=== PATIENT | male | born 1975 | race Caucasian/White ===

== ENCOUNTER → 2017-01-21 | Outpatient (CLI) | payer BC ==
--- NOTE | 2017-01-22 07:15 | US ---
EXAMINATION TYPE: US scrotum with doppler. Grayscale and color Doppler Duplex imaging performed of t regino scrotum. DATE OF EXAM: 01/21/2017 COMPARISON: NONE CLINICAL HISTORY: N50.812 LEFT TESTICULAR PAIN. EXAM MEASUREMENTS: TESTICLES: Right Testicle: 5.1 x 2.6 x 2.9 cm Left Testicle: 4.2 x 2.3 x 3.2 cm EPIDIDYMIS HEAD: Right Epididymis: 1.1 x 1.5 x 1.8 cm Left Epididymis: 0.7 x 0.9 x 1.4 cm Doppler performed to assess for testicular vascularity; good bilateral color flow and waveforms are s een. There is no evidence of testicular torsion. Presence of hydroceles: 4.1cm right, 1.8cm left Presence of varicoceles: bilateral prominent vessels that increase with valsalva IMPRESSION: 1. Bilateral hydroceles right greater than left. 2. Bilateral varicoceles.
--- NOTE | 2017-01-22 07:16 | US ---
EXAMINATION TYPE: US kidneys/renal and bladder DATE OF EXAM: 01/21/2017 COMPARISON: Prior in PACS 2013 CLINICAL HISTORY: R31.9 Hematuria. EXAM MEASUREMENTS: Right Kidney: 12.6 x 6.4 x 5.8 cm Left Kidney: 12.7 x 5.6 x 5.2 cm Right Kidney: No hydronephrosis. Echogenic foci visualized measuring 0.8 cm, possible stone Left Kidney: No hydronephrosis or masses seen Bladder: within normal limits Bilateral Jets seen: Yes IMPRESSION: Nonobstructing left-sided nephrolithiasis.
== END | disposition home or self-care (01) ==
LOC: RADUSWWP 16:57
PROVIDERS: ATTEND Family Medicine
DX: N43.3 Hydrocele, unspecified (principal); I86.1 Scrotal varices; N20.0 Calculus of kidney
CPT/HCPCS: 76770; 76870; 93975

== ENCOUNTER → 2017-01-22 | Outpatient (CLI) | payer BC ==
[2017-01-22 18:07] LABS: Blood Urea Nitrogen 18 mg/dL (9-20); Non-African American GFR(MDRD) >60 (>60 ml/min/1.73 sqM)
--- NOTE | 2017-01-22 19:28 | CT ---
EXAMINATION TYPE: CT urogram wo/w con DATE OF EXAM: 01/22/2017 COMPARISON: NONE HISTORY: Pt states of hematuria. CT DLP: 9078.5 mGycm, Automated Exposure Control for Dose Reduction was Utilized. CONTRAST: CT scan of the abdomen and pelvis is performed with oral and without and with IV Contrast, patient in jected with 100 mL of Omnipaque 300. FINDINGS: Lung bases are clear. There is no pleural effusion. There is evidence of fatty infiltration of the li rosy. There is no evidence of splenic mass. Pancreas appears normal. Gallbladder appears normal. Bile ducts are not dilated. There is no adrenal mass. There is a 5 mm calculus in the lower pole right kid shanelle. There is no hydronephrosis. Contrast images show satisfactory cortical opacification. There is n o hydronephrosis. Ureters are not dilated. Bladder distends smoothly. There is no sign of a pelvic ma ss. I see no intestinal wall thickening. There are no dilated loops. Appendix appears normal. There is no retroperitoneal adenopathy. I see no bony destructive process. IMPRESSION: Nonobstructing right renal calculus. No evidence of renal mass or obstruction. Fatty infi ltration of the liver. Normal appendix.
== END | disposition home or self-care (01) ==
LOC: RADCTMAIN 17:25
PROVIDERS: ATTEND Urology
DX: N20.0 Calculus of kidney (principal); K76.0 Fatty (change of) liver, not elsewhere classified
CPT/HCPCS: 82565; 84520; 74178; 36415; 74400; Q9967

== ENCOUNTER → 2017-03-05 | Outpatient (CLI) | payer BC ==
--- NOTE | 2017-03-05 14:37 | XR ---
Abdomen HISTORY: Status post right-sided lithotripsy Frontal view of the abdomen on 2 images correlated to prior CT urogram 01/22/2017 Multiple phleboliths are noted within the pelvis. Calcification is suspected superimposed over the lo wer pole of the right kidney although there is overlying bowel gas which obscures detail. No bowel ob struction. Lung bases not included on the exam. No evident pneumoperitoneum. IMPRESSION: Difficult to exclude lower pole renal calculus, distal ureteral calculus on the basis of this exam.
== END | disposition home or self-care (01) ==
LOC: RADXRMAIN 11:22
PROVIDERS: ATTEND Urology
DX: N20.0 Calculus of kidney (principal)
CPT/HCPCS: 74000

== ENCOUNTER → 2018-08-30 | Outpatient (CLI) | payer BC ==
--- NOTE | 2018-08-30 19:07 | CONS ---
CONSULTATION REASON FOR CONSULTATION: Consultation for severe CHRISTOPHER. A 43-year-old male patient diagnosed having severe CHRISTOPHER many years back. The patient has been utilizing a CPAP machine which is set at a pressure of 15 cm of water. He is coming in for a routine check. He is feeling great. His machine is functional. He is waking up refreshed and alert during the day. He is averaging around 7 hours of sleep at night. No hypersomnia or sleepiness during the day. No snoring while on the CPAP unit as the patient is using a Quattro FX full face mask. Based on the compliance data, the patient has been averaging 6 hours and 54 minutes of CPAP use per night. No periodic breathing. No leaks around the mask. AHI is down to 1.3. His CPAP use for more than 4 hours is 27 out of the past 30 days. No other complaints for now. No nocturnal dyspnea, chest pain, shortness of breath. Heartburn. He is going to bed around 10:00 p.m., wakes up at 5 a.m. in the morning. [place] score is down to 4. No recent weight gain or weight loss. PAST MEDICAL HISTORY: Obesity, environmental allergies, diabetes mellitus, obstructive sleep apnea. Hypothyroidism and hypertension. SURGICAL HISTORY: Lithotripsy. DRUG ALLERGIES: TO CIPRO. OUTPATIENT MEDICATION LIST: Includes Victoza 1.8 once a week, metformin 1000 mg twice a day. Synthroid 25 mcg 1 tablet a day, lisinopril hydrochlorothiazide 20/25 one tab a day. Singular 10 mg p.o. daily. Omeprazole 40 mg p.o. daily. SOCIAL HISTORY: Nonsmoker. No history of alcohol. No history of IV drugs. FAMILY HISTORY: Negative for sleep apnea. REVIEW OF SYSTEMS: 12-point review of system was done. Positive findings are mentioned above in the history of present illness. PHYSICAL EXAMINATION: BP is 137/75, pulse 92, respirations 16, temp 98.7, saturation 95% on room air. Height is 5 feet 5 inches, weight is 334. BMI 54.7, Springfield score is 4, neck size 20.5 inches. GENERAL APPEARANCE: Obese, calm, comfortable. Head is atraumatic, normocephalic. NECK: Supple. Crowding of posterior pharynx is present. There is no goiter or neck masses. Mallampati class IV. LUNGS: Clear to auscultation. HEART: Sounds are regular rate and rhythm. Normal S1, S2. No S3, S4. No murmurs. ABDOMEN: Soft, nontender. No organomegaly. EXTREMITIES: No edema. No cyanosis or clubbing. NEUROLOGIC: Alert and oriented x3. No focal neurological deficits. Psychiatric negative for anxiety or depression. IMPRESSION: 1. Severe symptomatic obstructive sleep apnea. Currently successfully treated on CPAP pressure of 15 cm of water. The patient is benefitting clinically and he is very compliant. 2. Obesity with a BMI of 54. 3. Diabetes mellitus. 4. Hypothyroidism. 5. Hypertension. 6. Environmental allergies. PLAN: 1. Encourage weight loss. 2. Continue using a full-face mask. I gave the patient 2 options, AirFit F20 medium- sized and a DreamWear full face mask medium size. 3. Keep same CPAP settings. 4. See me back on an as-needed basis. MMODL / IJN: [id number] /
== END | disposition home or self-care (01) ==
LOC: SLEEP 16:18
PROVIDERS: ATTEND Internal Medicine Critical Care Medicine
DX: G47.33 Obstructive sleep apnea (adult) (pediatric) (principal); E11.9 Type 2 diabetes mellitus without complications; E66.9 Obesity, unspecified; E03.9 Hypothyroidism, unspecified; I10 Essential (primary) hypertension; Z98.890 Other specified postprocedural states; Z88.1 Allergy status to other antibiotic agents; Z99.89 Dependence on other enabling machines and devices; Z91.048 Other nonmedicinal substance allergy status; Z79.84 Long term (current) use of oral hypoglycemic drugs; Z79.899 Other long term (current) drug therapy; Z68.43 Body mass index [BMI] 50.0-59.9, adult
CPT/HCPCS: 99211

== ENCOUNTER → 2021-06-14 | Outpatient (CLI) | payer OTHER ==
[2021-06-14 12:24] LABS: Basophils % (A) 1 %; Eosinophils # (A) 0.1 k/uL (0-0.7); Eosinophils % (A) 1 %; HCT 44.8 % (39.0-53.0); HGB 15.2 gm/dL (13.0-17.5); Lymphocytes # (A) 1.9 k/uL (1.0-4.8); Lymphocytes % (A) 28 %; MCH 29.8 pg (25.0-35.0); MCV 87.6 fL (80.0-100.0); Mean Platelet Volume 8.9; Monocytes # (A) 0.4 k/uL (0-1.0); Monocytes % (A) 5 %; Neutrophils # (A) 4.1 k/uL (1.3-7.7); Neutrophils % (A) 63 %; Platelet Count 166 k/uL (150-450); RBC 5.11 m/uL (4.30-5.90); RDW 13.3 % (11.5-15.5); WBC 6.6 k/uL (3.8-10.6)
[2021-06-14 18:27] LABS: Folate, Serum >20.00 ng/mL (4.40-31.00)
== END | disposition home or self-care (01) ==
LOC: LABWHC1 10:38
PROVIDERS: ATTEND Nurse Practitioner Adult Health
DX: D69.6 Thrombocytopenia, unspecified (principal)
CPT/HCPCS: 36415; 82607; 82746; 85025